=== PATIENT | male | born 1950 | race Caucasian/White ===

== ENCOUNTER 2018-06-19 18:00 | Observation (INO) ==
[2018-06-19] MEDS ORDERED: Azithromycin Inj 500 MG in Sodium Chlor 0.9% Inj 250 ML IV.SIG ONE (19:00)
--- NOTE | 2018-06-19 19:00 | ED ---
HPI General Chief Complaint: Respiratory Symptoms Stated Complaint: respiratory Time Seen by Provider: 06/19/18 18:35 Source: patient and family Mode of arrival: ambulatory Limitations: no limitations History of Present Illness HPI Narrative: Patient is a 67-year-old male presenting to the emergency department for evaluation of shortness of breath. Symptoms started yesterday. Patient states that he has been using his inhaler and albuterol nebulizers all day with no improvement. Patient was at a restaurant and could not drink more than 2 sips of his beer when he became even more short of breath and they called 911. Patient denies any chest pain, abdominal pain, nausea, vomiting, headache, dizziness. He reports a history of hypertension but was taken off of his blood pressure medication months ago. Patient has no other complaints at this time. Onset (ago): day(s) (1) Duration: constant and progressively worsening Severity: moderate Exacerbating factors: exertion Description of mucous: clear, yellow and green Associated symptoms: shortness of breath Related Data Home Medications Medication Instructions Recorded Confirmed clopidogrel [Plavix] 75 mg PO DAILY 06/19/18 06/19/18 levetiracetam [Keppra] 1,000 mg PO Q12H 06/19/18 06/19/18 Allergies Allergy/AdvReac Type Severity Reaction Status Date / Time No Known Allergies Allergy Verified 06/19/18 18:19 Review of Systems ROS: all other systems reviewed are negative [facility] Medical History Medical History CAD (coronary artery disease) (Acute) Emphysema of lung (Acute) FH: cholecystectomy (Acute) HTN (hypertension) (Acute) Liver cirrhosis (Acute) Seizures (Acute) Surgical History Surgical History H/O chest tube placement (Acute) Hx of cardiac cath (Acute) Hx of tonsillectomy (Acute) Stented coronary artery (Acute) Social History Social History Substance History: No History of Abuse Second Hand Smoke Exposure: Yes Smoking Status: Current every day smoker Tobacco Type: Cigarettes How Often Do You Have a Drink Containing Alcohol: 2 to 3 times a week Recent Travel in [facility] within the Last 8 Weeks: No Immunization History Tetanus Immunization: >5 Years Hx Influenza Vaccine This Season: No Exam Narrative Exam Narrative: GENERAL: Thin, well-developed, alert male. Presenting in no acute distress. SKIN: Focused skin assessment warm/dry. HEAD: Atraumatic. Normocephalic. EYES: Pupils equal and round. No scleral icterus. No injection or drainage. ENT: No nasal bleeding or discharge. Mucous membranes pink and moist. NECK: Trachea midline. No JVD. CARDIOVASCULAR: Mildly tachycardic. No murmur appreciated. RESPIRATORY: Tachypnea, diaphragmatic respirations. GASTROINTESTINAL: Abdomen soft, non-tender, nondistended. Hepatic and splenic margins not palpable. MUSCULOSKELETAL: No obvious deformities. No clubbing. No cyanosis. No edema. NEUROLOGICAL: Awake and alert. No obvious cranial nerve deficits. Motor grossly within normal limits. Normal speech. PSYCHIATRIC: Appropriate mood and affect; insight and judgment normal. Course Hospital Course: Patient CTA is negative for pulmonary embolism he is given aspirin and nitro and metoprolol 12.5 mg p.o. admitted to telemetry for mild elevated troponin of 0.1 EKG was normal sinus rhythm at a rate of 106 on arrival there is no ST elevations or depressions Initial Documented Vital Signs Temperature 97.9 F 06/19/18 18:07 Pulse Rate 122 H 06/19/18 18:07 Respiratory Rate 32 H 06/19/18 18:07 Blood Pressure 215/116 H 06/19/18 18:07 Pulse Oximetry 99 06/19/18 18:07 Last Documented Vital Signs Temperature 97.9 F 06/19/18 18:07 Pulse Rate 81 06/19/18 21:31 Respiratory Rate 18 06/19/18 21:31 Blood Pressure 176/102 H 06/19/18 21:31 Pulse Oximetry 98 06/19/18 21:31 Medical Decision Making PIERO Attestation PIERO supervised visit: Yes Attestation: I, Dr. Oshea, have reviewed the advance practice practitioner's documentation and am in agreement, met with the patient face to face, made the diagnosis, and the medical decision making was done by me. *My assessment and Findings: COPD exacerbation. Questionable infiltrate. Nebulizer treatments, x-rays and labs. If patient improves, discharge Solu- Medrol and antibiotics. MDM Narrative Medical decision making narrative: Patient is a 67-year-old male presenting to the emergency department for evaluation of shortness of breath secondary to COPD. Patient was given a total of 3 nebulizer treatments in route he was also given 125 of Solu-Medrol. On arrival his initial blood pressure was documented at 215/116, after the correct size blood pressure cuff was placed his blood pressure was reassessed at 160 systolic. Labs and imaging ordered and pending. Patient was placed on telemetry monitoring continuous pulse oximetry. IV access was established by EMS. Labs reviewed, troponin was elevated at 0.10, labs are otherwise unremarkable. Chest x-ray showed hyperinflation. Due to the tachycardia and elevated troponin coupled with shortness of breath a CT pulmonary angiogram was ordered to rule out pulmonary embolism. CTA shows diffuse emphysema. Patient was given 324 chewable aspirin, 1 sublingual nitroglycerin. He was also given 12.5 mg of metoprolol orally. Patient and significant other were advised on findings as well as plan of care. They were agreeable to stay. Findings and plan of care were also discussed with my attending physician. Admit orders placed after discussing with Dr. Conley. Medical Screen Exam Complete: Yes Emergency Medical Condition: Yes Differential Diagnosis Differential Diagnosis: COPD exacerbation versus pneumonia versus bronchitis versus metabolic abnormality versus cardiac arrhythmia versus other Lab Data Result diagrams: 06/19/18 18:10 06/19/18 18:10 Lab Results 06/19/18 06/19/18 06/19/18 Range/Units 18:10 18:10 18:10 WBC 7.7 (4.0-11.0) th/mm3 RBC 4.98 (4.50-5.90) mil/mm3 Hgb 15.8 (13.0-17.0) gm/dL Hct 46.4 (39.0-51.0) % MCV 93.2 (80.0-100.0) fL MCH 31.7 (27.0-34.0) pg MCHC 34.0 (32.0-36.0) % RDW 13.3 (11.6-17.2) % Plt Count 111 L (150-450) th/mm3 MPV 10.8 (7.0-11.0) fL Neut % (Auto) 64.5 (16.0-70.0) % Lymph % (Auto) 16.4 (9.0-44.0) % [place] % (Auto) 6.1 (0.0-8.0) % Eos % (Auto) 12.7 H (0.0-4.0) % Baso % (Auto) 0.3 (0.0-2.0) % Neut # (Auto) 5.0 (1.8-7.7) th/mm3 Lymph # (Auto) 1.3 (1.0-4.8) th/mm3 [place] # (Auto) 0.5 (0.0-0.9) th/mm3 Eos # (Auto) 1.0 H (0.0-0.4) th/mm3 Baso # (Auto) 0.0 (0.0-0.2) th/mm3 WBC Differential . Differential Comment Auto diff final PT 10.6 (9.8-11.6) sec INR 1.0 Ratio Sodium 143 (136-145) meq/L Potassium 4.6 (3.5-5.1) meq/L Chloride 110 H (98-107) meq/L Carbon Dioxide 22.6 (21.0-32.0) meq/L Anion Gap 10 (5-15) meq/L BUN 21 H (7-18) mg/dL Creatinine 1.10 (0.60-1.30) mg/dL Estimated GFR 67 L (>89) mL/min Random Glucose 105 (74-106) mg/dL Calcium 9.0 (8.5-10.1) mg/dL Magnesium 1.9 (1.5-2.5) mg/dL Total Bilirubin 0.3 (0.2-1.0) mg/dL AST 31 (15-37) U/L ALT 21 (12-78) U/L Alkaline Phosphatase 95 (45-117) U/L Total Creatine Kinase 99 (39-308) U/L Troponin I 0.10 H (0.02-0.05) ng/mL Total Protein 7.9 (6.4-8.2) g/dL Albumin 4.3 (3.4-5.0) g/dL 06/19/18 Range/Units 18:10 WBC (4.0-11.0) th/mm3 RBC (4.50-5.90) mil/mm3 Hgb (13.0-17.0) gm/dL Hct (39.0-51.0) % MCV (80.0-100.0) fL MCH (27.0-34.0) pg MCHC (32.0-36.0) % RDW (11.6-17.2) % Plt Count (150-450) th/mm3 MPV (7.0-11.0) fL Neut % (Auto) (16.0-70.0) % Lymph % (Auto) (9.0-44.0) % [place] % (Auto) (0.0-8.0) % Eos % (Auto) (0.0-4.0) % Baso % (Auto) (0.0-2.0) % Neut # (Auto) (1.8-7.7) th/mm3 Lymph # (Auto) (1.0-4.8) th/mm3 [place] # (Auto) (0.0-0.9) th/mm3 Eos # (Auto) (0.0-0.4) th/mm3 Baso # (Auto) (0.0-0.2) th/mm3 WBC Differential Differential Comment PT (9.8-11.6) sec INR Ratio Sodium (136-145) meq/L Potassium (3.5-5.1) meq/L Chloride (98-107) meq/L Carbon Dioxide (21.0-32.0) meq/L Anion Gap (5-15) meq/L BUN (7-18) mg/dL Creatinine (0.60-1.30) mg/dL Estimated GFR (>89) mL/min Random Glucose (74-106) mg/dL Calcium (8.5-10.1) mg/dL Magnesium Cancelled (1.5-2.5) mg/dL Total Bilirubin (0.2-1.0) mg/dL AST (15-37) U/L ALT (12-78) U/L Alkaline Phosphatase (45-117) U/L Total Creatine Kinase (39-308) U/L Troponin I (0.02-0.05) ng/mL Total Protein (6.4-8.2) g/dL Albumin (3.4-5.0) g/dL Imaging Data Radiologist's impression: Chest X-Ray 06/19/18 18:34 CONCLUSION: No definite acute abnormality is seen. The lungs do appear hyperinflated. Chest CTA 06/19/18 20:00 CONCLUSION: 1. No pulmonary embolus. 2. Diffuse emphysematous change. Discharge Plan Discharge Disposition Patient Disposition: 30 Still Patient Discharge Condition Condition: Stable Discharge Details Diagnosis: Elevated troponin, COPD exacerbation Physicians Team ED Provider: Yemi Fry ED Midlevel Provider: Meme Soto Primary Care Provider: Primary Care Hillary Murphy Attending Provider: Arnie Conley Status ED Status: Admitted Observation Patient
--- NOTE | 2018-06-19 19:06 | XR ---
EXAM DATE: 06/19/2018 7:01 PM EDT AGE/SEX: 67 years / Male INDICATIONS: Short of breath. CLINICAL DATA: This is the patient's initial encounter. Patient reports that signs and symptoms have been present for 2 days and indicates a pain score of 0/10. MEDICAL/SURGICAL HISTORY: Chronic obstructive pulmonary disease. Stroke. Cholecystectomy. COMPARISON: No prior exams available for comparison. FINDINGS: The heart size is normal. The lungs are hyperinflated. The lungs to appear clear. CONCLUSION: No definite acute abnormality is seen. The lungs do appear hyperinflated. Electronically signed by: Vu Loepz MD 06/19/2018 7:05 PM EDT
[2018-06-19 19:34] LABS: Baso % (Auto) 0.3 % (0.0-2.0); Eos % (Auto) 12.7 % (0.0-4.0); Hematocrit 46.4 % (39.0-51.0); Hemoglobin 15.8 gm/dL (13.0-17.0); Lymph # (Auto) 1.3 th/mm3 (1.0-4.8); Lymph % (Auto) 16.4 % (9.0-44.0); Mean Corpuscular Hemoglobin 31.7 pg (27.0-34.0); Mean Corpuscular Volume 93.2 fL (80.0-100.0); Mean Platelet Volume 10.8 fL (7.0-11.0); Mono # (Auto) 0.5 th/mm3 (0.0-0.9); Mono % (Auto) 6.1 % (0.0-8.0); Neut % (Auto) 64.5 % (16.0-70.0); Platelet Count 111 th/mm3 (150-450); Red Blood Count 4.98 mil/mm3 (4.50-5.90); Red Cell Distribution Width 13.3 % (11.6-17.2); White Blood Count 7.7 th/mm3 (4.0-11.0)
[2018-06-19 19:47] LABS: Prothrombin Time 10.6 sec (9.8-11.6)
[2018-06-19 19:50] LABS: Alanine Aminotransferase 21 U/L (12-78)
[2018-06-19 19:54] LABS: Albumin 4.3 g/dL (3.4-5.0); Alkaline Phosphatase 95 U/L (45-117); Anion Gap 10 meq/L (5-15); Aspartate Aminotransferase 31 U/L (15-37); Blood Urea Nitrogen 21 mg/dL (7-18); Carbon Dioxide 22.6 meq/L (21.0-32.0); Chloride 110 meq/L (98-107); Glomerular Filtration Rate 67 mL/min (>89); Glucose,Random 105 mg/dL (74-106); Sodium 143 meq/L (136-145); Total Protein 7.9 g/dL (6.4-8.2)
[2018-06-19 19:55] LABS: Creatine Kinase 99 U/L (39-308); Potassium 4.6 meq/L (3.5-5.1)
[2018-06-19 20:43] LABS: Magnesium 1.9 mg/dL (1.5-2.5)
[2018-06-19] MEDS ORDERED: Metoprolol Tartrate 25 MG Tablet PO ONE (21:30)
--- NOTE | 2018-06-19 21:33 | CT ---
EXAM DATE: 06/19/2018 9:16 PM EDT AGE/SEX: 67 years / Male INDICATIONS: Short of breath. CLINICAL DATA: This is the patient's initial encounter. Patient reports that signs and symptoms have been present for 1 day and indicates a pain score of 0/10. MEDICAL/SURGICAL HISTORY: Emphysema. Hypertension. Coronary artery disease. Cholecystectomy. Cor onary stent. RADIATION DOSE: 8.09 CTDI (mGy) COMPARISON: No prior exams available for comparison. TECHNIQUE: Volumetric scanning was performed using a multi-row detector CT scanner during bolus infu hong of 72 ml Omnipaque 350 (iohexol) nonionic water-soluble contrast as a single exam dose. The davis a was post processed with a variety of visualization algorithms including full volume maximum intensi ty projection and sliding thin slab reformation. Using automated exposure control and adjustment of t he mA and/or kV according to patient size, radiation dose was kept as low as reasonably achievable to obtain optimal diagnostic quality images. DICOM format image data is available electronically for r eview and comparison. FINDINGS: Pulmonary Arteries: No filling defects are seen in the pulmonary arteries out to the subsegmental ve ssels. The left and right pulmonary arteries are normal in diameter. Lung: There is linear suspected scarring in the right upper lung. There is diffuse emphysematous alessandra nge. Effusion: None. Mediastinum: No evidence of mediastinal or hilar adenopathy. Coronary artery calcification are prese nt. There is a mild amount of pericardial fluid seen anteriorly. Other: The axilla is unremarkable. CONCLUSION: 1. No pulmonary embolus. 2. Diffuse emphysematous change. Electronically signed by: Vu Lopez MD 06/19/2018 9:31 PM EDT
[2018-06-19] MEDS ORDERED: Bisacodyl 10 MG Supp RECTAL PRN (21:54)
[2018-06-19] MEDS: levETIRAcetam 500 MG Tablet PO SCH (22:26)
[2018-06-19] MEDS: MethylPREDNISolone Sod Succinate Inj 40 MG/ML Vial IV.PUSH SCH (22:26)
--- NOTE | 2018-06-19 23:18 | P.HPIM ---
History of Present Illness Primary Care Physician: No Primary Care Physician History of Present Illness: 67-year-old male with a history of coronary artery disease status post stenting , COPD, chronic smoking, heavy drinking and seizures who presents with acute onset of shortness of breath starting around 3 PM today. He was out at the bar , began to feel short of breath and realized that he left his albuterol inhaler at home. He says that shortness of breath improved after immunizations in the ambulance, as well as in the ER, and currently feels much better, feels like he might be able to go home tomorrow. He denies having any chest pain. He does feel a little bit more short of breath over the past few days, and has been having a cough with clear sputum. He is requesting refills for all of his medications including his nebulizations, And inhaler. 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 - Medical History Medical History: Medical History (Last Reviewed 06/19/18 @ 19:10 by GIAN Baugh) CAD (coronary artery disease) Emphysema of lung FH: cholecystectomy HTN (hypertension) Liver cirrhosis Seizures - Surgical History Surgical History: Surgical History (Last Reviewed 06/19/18 @ 19:10 by GIAN Baugh) H/O chest tube placement Hx of cardiac cath Hx of tonsillectomy Stented coronary artery - Family History Family History: Family History (Last Updated 06/19/18 @ 23:14 by Arnie Conley MD) Mother Emphysema lung Father Healthy adult - Tobacco History Second Hand Smoke Exposure: Yes Tobacco Use In Past 30 Days: Yes Smoking Status: Current every day smoker Tobacco Type: Cigarettes - Alcohol History How Often Do You Have a Drink Containing Alcohol: 2 to 3 times a week - Substance Use History Substance History: No History of Abuse - Travel History Recent Travel in the [facility] Within the Last 8 Weeks: No - Immunization History Tetanus Immunization: >5 Years Hx Influenza Vaccine This Season: No Medications and Allergies Active Medications: Active Medications Al Hydroxide/Mg Hydroxide (Milk Of [place] Liq) 30 ml PO Q12H PRN PRN Reason: Mild Constipation Albuterol (Duoneb Neb (Tracey)) 1 ampul NEB Q4HR NEB TRACEY Azithromycin (Zithromax) 500 mg PO DAILY TRACEY; Taper Stop: 06/25/18 08:59 Bisacodyl (Dulcolax Supp) 10 mg RECTAL DAILY PRN PRN Reason: SEVERE CONSITIPATION Clopidogrel Bisulfate (Plavix) 75 mg PO DAILY [facility] Ipratropium [place] (Atrovent Neb) 0.5 mg NEB Q6HR NEB PRN PRN Reason: SHORTNESS OF BREATH Lactulose (Lactulose Liq) 30 ml PO DAILY PRN PRN Reason: SEVERE CONSITIPATION Levetiracetam (Keppra) 1,000 mg PO Q12H [facility] Last Admin: 06/19/18 22:26 Dose: 1,000 mg Methylprednisolone Sodium Succinate (Solumedrol Inj) 40 mg IV.PUSH Q6H [facility] Last Admin: 06/19/18 22:26 Dose: 40 mg Sennosides (Senokot) 17.2 mg PO Q12H PRN PRN Reason: Moderate Constipation Sodium Chloride (Ns Flush) 2 ml IV.FLUSH BID [facility] Sodium Chloride (Ns Flush) 2 ml IV.FLUSH PRN PRN PRN Reason: FLUSH AFTER USING IV ACCESS Allergies Allergy/AdvReac Type Severity Reaction Status Date / Time No Known Allergies Allergy Verified 06/19/18 18:19 Home Medications Medication Instructions Recorded Confirmed Type clopidogrel [Plavix] 75 mg PO DAILY 06/19/18 06/19/18 History hydrocodone-acetaminophen 2 tab PO Q4-6H PRN 06/19/18 06/19/18 History levetiracetam [Keppra] 1,000 mg PO Q12H 06/19/18 06/19/18 History Exam Vital signs: Vital Signs 06/19/18 18:07 06/19/18 18:30 06/19/18 19:00 Temperature 97.9 F Pulse Rate 122 H 102 H 92 H Respiratory Rate 32 H 28 H 27 H Blood Pressure 215/116 H 160/96 H 153/96 H Pulse Oximetry 99 96 97 06/19/18 21:31 06/19/18 22:29 Temperature Pulse Rate 81 81 Respiratory Rate 18 18 Blood Pressure 176/102 H 165/105 H Pulse Oximetry 98 99 Intake & Output 06/19/18 06/19/18 06/20/18 06:59 18:59 06:59 Weight 68.039 kg Narrative: GENERAL: Patient sitting up in bed. Appears comfortable. Alert and oriented 4. SKIN: Warm and dry. HEAD: Atraumatic. Normocephalic. EYES: Pupils equal and round. No scleral icterus. No injection or drainage. ENT: No nasal bleeding or discharge. Mucous membranes pink and moist. NECK: Trachea midline. No JVD. CARDIOVASCULAR: Regular rate and rhythm. RESPIRATORY: No accessory muscle use. Clear to auscultation. Breath sounds equal bilaterally. Dry crackles bilaterally. GASTROINTESTINAL: Abdomen soft, non-tender, nondistended. Hepatic and splenic margins not palpable. MUSCULOSKELETAL: Extremities without clubbing, cyanosis, or edema. No obvious deformities. NEUROLOGICAL: Awake and alert. No obvious cranial nerve deficits. Motor grossly within normal limits. Five out of 5 muscle strength in the arms and legs. Normal speech. PSYCHIATRIC: Appropriate mood and affect; insight and judgment normal. Results - Labs CBC & Chem 7: 06/19/18 18:10 06/19/18 18:10 Labs: Short CBC 06/19/18 Range/Units 18:10 WBC 7.7 (4.0-11.0) th/mm3 Hgb 15.8 (13.0-17.0) gm/dL Hct 46.4 (39.0-51.0) % Plt Count 111 L (150-450) th/mm3 BMP 06/19/18 18:10 Sodium 143 Potassium 4.6 Chloride 110 H Carbon Dioxide 22.6 BUN 21 H Creatinine 1.10 Calcium 9.0 Cardiac Enzymes 06/19/18 Range/Units 18:10 Total Creatine Kinase 99 (39-308) U/L Troponin I 0.10 H (0.02-0.05) ng/mL Liver Function 06/19/18 Range/Units 18:10 Total Bilirubin 0.3 (0.2-1.0) mg/dL AST 31 (15-37) U/L ALT 21 (12-78) U/L Alkaline Phosphatase 95 (45-117) U/L Albumin 4.3 (3.4-5.0) g/dL - Imaging Impressions Chest X-Ray 06/19/18 18:34 CONCLUSION: No definite acute abnormality is seen. The lungs do appear hyperinflated. Chest CTA 06/19/18 20:00 CONCLUSION: 1. No pulmonary embolus. 2. Diffuse emphysematous change. Caprini VTE Risk Assessment Caprini VTE Risk Assessment: Moderate/High Risk (score >= 2) Caprini Risk Assessment Model: Point Value = 1 Point Value = 2 Point Value = 3 Point Value = 5 Age 41-60 Minor surgery BMI > 25 kg/m2 Swollen legs Varicose veins or History of unexplained or recurrent spontaneous Oral contraceptives or hormone replacement Sepsis (< 1 month) Serious lung disease, including pneumonia (< 1 month) Abnormal pulmonary function Acute myocardial infarction Congestive heart failure (< 1 month) History of inflammatory bowel disease Medical patient at bed rest Age 61-74 Arthroscopic surgery Major open surgery (> 45 min) Laparoscopic surgery (> 45 min) Malignancy Confined to bed (> 72 hours) Immobilizing plaster cast Central venous access Age >= 75 History of VTE Family history of VTE Factor V Leiden Prothrombin [id number] Lupus anticoagulant Anticardiolipin antibodies Elevated serum homocysteine Heparin-induced thrombocytopenia Other congenital or acquired thrombophilia Stroke (< 1 month) Elective arthroplasty Hip, pelvis, or leg fracture Acute spinal cord injury (< 1 month) Prophylaxis Regimen: Total Risk Factor Score Risk Level Prophylaxis Regimen 0-1 Low Early ambulation 2 Moderate Order ONE of the following: *Sequential Compression Device (SCD) *Heparin 5000 units SQ BID 3-4 Higher Order ONE of the following medications: *Heparin 5000 units SQ TID *Enoxaparin/Lovenox 40 mg SQ daily (WT < 150 kg, CrCl > 30 mL/min) *Enoxaparin/Lovenox 30 mg SQ daily (WT < 150 kg, CrCl > 10-29 mL/min) *Enoxaparin/Lovenox 30 mg SQ BID (WT < 150 kg, CrCl > 30 mL/min) AND/OR *Sequential Compression Device (SCD) 5 or more Highest Order ONE of the following medications: *Heparin 5000 units SQ TID (Preferred with Epidurals) *Enoxaparin/Lovenox 40 mg SQ daily (WT < 150 kg, CrCl > 30 mL/min) *Enoxaparin/Lovenox 30 mg SQ daily (WT < 150 kg, CrCl > 10-29 mL/min) *Enoxaparin/Lovenox 30 mg SQ BID (WT < 150 kg, CrCl > 30 mL/min) AND *Sequential Compression Device (SCD) Assessment and Plan - Plan //COPD exacerbation Emphysema on CT pulmonary angiogram. Angiogram negative for embolism. Likely patient has run out of his nebulizers, as he needs refills. Will treat with azithromycin, DuoNeb's, IV steroids, hopefully transition to by mouth steroids tomorrow. //Troponin elevation. Patient denies ever having chest pain. Likely secondary to hypertension and tachycardia from COPD exacerbation, nebs. We will continue to trend EKGs and troponins. //History of cirrhosis. Patient advised to stop drinking. //Chronic tobacco abuse. Cessation counseling provided. Patient advised to stop smoking. //History of coronary artery disease. Chronic. With history of stenting. Will continue on home Plavix. //Seizure disorder. Chronic. Likely secondary to alcohol withdrawal as patient used to drink very heavily. Will continue on Keppra. Discussed Condition With: Patient, nurse, ED physician, significant other at bedside.
[2018-06-19 23:45] LABS: Amphetamine Screen,Urine Neg (Neg); Barbiturate Screen,Urine Neg (Neg); Cannabinoid Screen,Urine Neg (Neg); Cocaine Screen,Urine Pos (Neg)
[2018-06-19 23:57] LABS: Opiate Screen,Urine Neg (Neg)
[2018-06-20] MEDS ORDERED: Melatonin 5 MG Tablet PO ONE (00:29)
[2018-06-20 01:05] LABS: Troponin I 0.1 ng/mL (0.02-0.05)
[2018-06-20] MEDS: MethylPREDNISolone Sod Succinate Inj 40 MG/ML Vial IV.PUSH SCH ×2 (06:50→10:06)
[2018-06-20 07:01] LABS: Hematocrit 40.4 % (39.0-51.0); Hemoglobin 14.3 gm/dL (13.0-17.0); Lymph # (Auto) 0.4 th/mm3 (1.0-4.8); Lymph % (Auto) 3.6 % (9.0-44.0); Mean Corpuscular HGB Conc 35.5 % (32.0-36.0); Mean Corpuscular Hemoglobin 32.1 pg (27.0-34.0); Mean Corpuscular Volume 90.6 fL (80.0-100.0); Mono # (Auto) 0.1 th/mm3 (0.0-0.9); Mono % (Auto) 1.3 % (0.0-8.0); Neut # (Auto) 9.3 th/mm3 (1.8-7.7); Neut % (Auto) 95.1 % (16.0-70.0); Platelet Count 120 th/mm3 (150-450); Red Blood Count 4.46 mil/mm3 (4.50-5.90); Red Cell Distribution Width 13.3 % (11.6-17.2); White Blood Count 9.8 th/mm3 (4.0-11.0)
[2018-06-20 07:26] LABS: Alanine Aminotransferase 20 U/L (12-78); Albumin 3.9 g/dL (3.4-5.0); Anion Gap 12 meq/L (5-15); Aspartate Aminotransferase 13 U/L (15-37); Blood Urea Nitrogen 29 mg/dL (7-18); Calcium 8.8 mg/dL (8.5-10.1); Carbon Dioxide 21.5 meq/L (21.0-32.0); Chloride 109 meq/L (98-107); Glucose,Random 162 mg/dL (74-106); Potassium 4.3 meq/L (3.5-5.1); Sodium 142 meq/L (136-145)
[2018-06-20 07:29] LABS: Alkaline Phosphatase 78 U/L (45-117); Glomerular Filtration Rate 68 mL/min (>89); Total Protein 7.3 g/dL (6.4-8.2); Troponin I 0.08 ng/mL (0.02-0.05)
[2018-06-20 07:33] LABS: Creatine Kinase 55 U/L (39-308)
[2018-06-20 08:45] VITALS: RESP 18
[2018-06-20] MEDS ORDERED: Azithromycin 250 MG Tablet PO SCH (09:00)
[2018-06-20] MEDS: levETIRAcetam 500 MG Tablet PO SCH (09:21)
--- NOTE | 2018-06-20 09:35 | ECG ---
Date Performed: 06/19/2018 Time Performed: 18:02:12 PTAGE: 67 years EKG: SINUS TACHYCARDIA ABNORMAL RHYTHM ECG NO PREVIOUS TRACING DOCTOR: Frankie Ornelas Interpretating Date/Time 06/20/2018 09:33:21
--- NOTE | 2018-06-20 09:48 | ECG ---
Date Performed: 06/20/2018 Time Performed: 00:18:26 PTAGE: 67 years EKG: Sinus rhythm NORMAL ECG Since the PREVIOUS TRACING , no significant change noted PREVIOUS TRACIN06/19/2018 18.02 DOCTOR: Frankie Ornelas Interpretating Date/Time 06/20/2018 09:46:53
--- NOTE | 2018-06-20 09:48 | ECG ---
Date Performed: 06/20/2018 Time Performed: 06:37:35 PTAGE: 67 years EKG: Sinus rhythm NORMAL ECG Since the PREVIOUS TRACING , no significant change noted PREVIOUS TRACIN06/20/2018 00.18 DOCTOR: Frankie Ornelas Interpretating Date/Time 06/20/2018 09:46:44
[2018-06-20 12:36] VITALS: BP 132/68; PULSE 68; TEMP 96.8; O2SAT 96
--- NOTE | 2018-06-20 13:18 | P.PN ---
Subjective Interval history: Follow-up visit COPD exacerbation, chest pain, HTN. Patient seen and examined today. Significant other at bedside. Patient states that he is doing much better. No oxygen. States he was getting in and out of bed without getting severely short of breath compared to yesterday. States that chest pain is not there. Patient admitted to cocaine use. Patient states that he has not had cocaine for about 20 years and 1 she moved from [place] to [facility] he was offered the other day and he said "so I tried it a little bit, but I have not done it for a very long time, 20 years." Reports cough, expectorating small to moderate amount of sputum described as yellow-green. Denies pain and discomfort. Denies chest pain, palpitations, headaches, dizziness. Denies fevers, chills, n/v/d. Denies dysuria. Physical Exam Vital signs: Vital Signs 06/19/18 18:07 06/19/18 18:30 06/19/18 19:00 Temperature 97.9 F Pulse Rate 122 H 102 H 92 H Respiratory Rate 32 H 28 H 27 H Blood Pressure 215/116 H 160/96 H 153/96 H Pulse Oximetry 99 96 97 06/19/18 21:31 06/19/18 22:29 06/19/18 23:22 Temperature Pulse Rate 81 81 78 Respiratory Rate 18 18 26 H Blood Pressure 176/102 H 165/105 H Pulse Oximetry 98 99 96 06/20/18 00:00 06/20/18 04:00 06/20/18 04:41 Temperature 98.5 F 98.3 F Pulse Rate 80 88 80 Respiratory Rate 17 17 20 Blood Pressure 160/98 H 135/79 Pulse Oximetry 95 94 L 06/20/18 08:00 06/20/18 08:27 06/20/18 08:44 Temperature 98.2 F Pulse Rate 78 72 Respiratory Rate 16 18 Blood Pressure 138/76 Pulse Oximetry 95 98 06/20/18 09:00 06/20/18 12:35 Temperature 96.8 F L Pulse Rate 93 H 68 Respiratory Rate 18 Blood Pressure 132/68 Pulse Oximetry 96 Intake & Output 06/19/18 06/20/18 06/20/18 18:59 06:59 18:59 Intake Total 250 / 250 Balance 250 / 250 Weight 68.039 kg 68.039 kg Intake: IV 250 / 250 Azithromycin Inj 500 MG In NS 250 / 250 Inj 250 ML @ 250 mls/hr IV.SIG ONCE ONE Rx#:[id number] Other: Weight On Admission 68.039 kg Narrative: GENERAL: This is a well-nourished, well-developed patient, in no apparent distress. SKIN: Warm and dry. HEENT: Normocephalic. Pupils equal round and reactive. Nose without bleeding. Airway patent. NECK: Trachea midline. Supple. CARDIOVASCULAR: Regular rate and rhythm without murmurs, gallops, or rubs. RESPIRATORY: Coarse breath sounds bilaterally. Minimal expiratory wheeze. GASTROINTESTINAL: Abdomen soft, non-tender, nondistended. Bowel Sounds normoactive x4. MUSCULOSKELETAL: Extremities without clubbing, cyanosis, or edema. NEUROLOGICAL: Awake and alert. Oriented to time, place, person. No focal neuro deficit. Moves all extremities. Normal speech. Results - Labs CBC & Chem 7: 06/20/18 06:30 06/20/18 06:30 Laboratory Results - last 24 hr 06/19/18 06/19/18 06/19/18 18:10 18:10 18:10 WBC 7.7 RBC 4.98 Hgb 15.8 Hct 46.4 MCV 93.2 MCH 31.7 MCHC 34.0 RDW 13.3 Plt Count 111 L MPV 10.8 Neut % (Auto) 64.5 Lymph % (Auto) 16.4 Gray % (Auto) 6.1 Eos % (Auto) 12.7 H Baso % (Auto) 0.3 Neut # (Auto) 5.0 Lymph # (Auto) 1.3 Gray # (Auto) 0.5 Eos # (Auto) 1.0 H Baso # (Auto) 0.0 WBC Differential . Differential Comment Auto diff final PT 10.6 INR 1.0 Sodium 143 Potassium 4.6 Chloride 110 H Carbon Dioxide 22.6 Anion Gap 10 BUN 21 H Creatinine 1.10 Estimated GFR 67 L Random Glucose 105 Calcium 9.0 Magnesium 1.9 Total Bilirubin 0.3 AST 31 ALT 21 Alkaline Phosphatase 95 Total Creatine Kinase 99 Troponin I 0.10 H Total Protein 7.9 Albumin 4.3 Urine Opiates Screen Ur Barbiturates Screen Ur Amphetamines Screen U Benzodiazepines Scrn Urine Cocaine Screen U Cannabinoids Screen 06/19/18 06/19/18 06/20/18 18:10 23:17 00:15 WBC RBC Hgb Hct MCV MCH MCHC RDW Plt Count MPV Neut % (Auto) Lymph % (Auto) Gray % (Auto) Eos % (Auto) Baso % (Auto) Neut # (Auto) Lymph # (Auto) Gray # (Auto) Eos # (Auto) Baso # (Auto) WBC Differential Differential Comment PT INR Sodium Potassium Chloride Carbon Dioxide Anion Gap BUN Creatinine Estimated GFR Random Glucose Calcium Magnesium Cancelled Total Bilirubin AST ALT Alkaline Phosphatase Total Creatine Kinase 63 Troponin I 0.10 H Total Protein Albumin Urine Opiates Screen Neg Ur Barbiturates Screen Neg Ur Amphetamines Screen Neg U Benzodiazepines Scrn Neg Urine Cocaine Screen Pos H U Cannabinoids Screen Neg 06/20/18 06/20/18 06:30 06:30 WBC 9.8 RBC 4.46 L Hgb 14.3 Hct 40.4 MCV 90.6 MCH 32.1 MCHC 35.5 RDW 13.3 Plt Count 120 L MPV 11.0 Neut % (Auto) 95.1 H Lymph % (Auto) 3.6 L Gray % (Auto) 1.3 Eos % (Auto) 0.0 Baso % (Auto) 0.0 Neut # (Auto) 9.3 H Lymph # (Auto) 0.4 L Gray # (Auto) 0.1 Eos # (Auto) 0.0 Baso # (Auto) 0.0 WBC Differential . Differential Comment Auto diff final PT INR Sodium 142 Potassium 4.3 Chloride 109 H Carbon Dioxide 21.5 Anion Gap 12 BUN 29 H Creatinine 1.09 Estimated GFR 68 L Random Glucose 162 H Calcium 8.8 Magnesium Total Bilirubin 0.5 AST 13 L ALT 20 Alkaline Phosphatase 78 Total Creatine Kinase 55 Troponin I 0.08 H Total Protein 7.3 D Albumin 3.9 Urine Opiates Screen Ur Barbiturates Screen Ur Amphetamines Screen U Benzodiazepines Scrn Urine Cocaine Screen U Cannabinoids Screen - Imaging Impressions Chest X-Ray 06/19/18 18:34 CONCLUSION: No definite acute abnormality is seen. The lungs do appear hyperinflated. Chest CTA 06/19/18 20:00 CONCLUSION: 1. No pulmonary embolus. 2. Diffuse emphysematous change. Assessment and Plan - Plan 67-year-old male with a history of coronary artery disease status post stenting , COPD, chronic smoking, heavy drinking and seizures who presents with acute onset of shortness of breath. COPD exacerbation -Emphysema on CT pulmonary angiogram. Angiogram negative for embolism. -Likely patient has run out of his nebulizers, as he needs refills. -azithromycin, DuoNeb's, IV steroids, transition to PO steroids -Symbicort Troponin elevation -Patient denies ever having chest pain. -This is likely secondary to hypertension and tachycardia from COPD exacerbation, nebs. -Troponin trended down. EKG Trend reviewed normal EKG with sinus rhythm no changes from previous. History of cirrhosis. -Patient advised to stop drinking -Liver enzymes wnl Chronic tobacco abuse Cocaine Use. -Cessation counseling provided. -Patient advised to stop smoking -Counseled on cocaine use with coronary artery disease, COPD exacerbation History of coronary artery disease. Chronic. -With history of stenting. -Continue on home Plavix. Seizure disorder. Chronic. -Likely secondary to alcohol withdrawal as patient used to drink very heavily. -continue on Keppra. DVT prop ambulatory. Discharge patient to home Condition on discharge: Improved Cardiac Diet as tolerated Ad Janett activity Rx written: As per DC Plan Follow-up with primary care physician, Anuja Code Status: Full code Discussed Condition With: Patient, significant other, nursing, Dr. Mccracken Discharge Planning: Plan to DC home today and first dose of Symbicort
[2018-06-20] MEDS ORDERED: Budesonide-Formoterol 160/4.5 MCG 6 GM Inhaler INH SCH (14:00)
== END 2018-06-20 16:08 | disposition home or self-care (01) ==
LOC: NEPC 18:00 → INTOOBSV 21:53 → NEDA 21:53 → NEPHCDU 23:30
PROVIDERS: ADMIT Hospitalist; ATTEND Hospitalist